=== PATIENT | male | born 1950 | race Caucasian/White ===

== ENCOUNTER 2017-07-30 15:51 | Emergency (ER) | payer MEDICARE ==
[2017-07-30 16:32] LABS: BASOPHIL 0.5 % (0-2); EOSINOPHIL 2.7 % (0-7); HCT 34.1 % (42.0-52.0); HGB 11.6 g/dl (13.2-18.0); LYMPHOCYTE 23.1 % (15-48); MCH 30.6 pg (25.0-31.0); MONOCYTE 10.5 % (0-12); MPV 10.2 fL (6.0-9.5); NEUTROPHIL 63.2 % (41-80); PLT 197 K/uL (150-400); RBC 3.79 M/uL (4.70-6.00); RDW 13.8 % (11.5-14.0); WBC 6.3 K/uL (4.0-10.5)
[2017-07-30 17:00] LABS: ALBUMIN 3.6 g/dL (3.4-4.8); BILIRUBIN - TOTAL 0.3 mg/dL (0.1-1.0); CREATININE 0.9 mg/dL (0.7-1.2); GLOBULIN (CALCULATION) 3.1 g/dL (2.2-4.2); POTASSIUM 3.7 mmol/L (3.5-5.1); TOTAL PROTEIN 6.7 g/dL (6.4-8.3)
== END 2017-07-30 19:16 | disposition home or self-care (01) ==
LOC: FER 15:51
PROVIDERS: Nurse Practitioner Family
DX: S00.83XA Contusion of other part of head, initial encounter (principal); W19.XXXA Unspecified fall, initial encounter
CPT/HCPCS: 36415; 70450; 71020; 80053; 84484; 85025; 93005; 94640

== ENCOUNTER 2020-12-19 15:54 | Emergency (ER) | payer MEDICARE, OTHER ==
[~2020-12-19 15:54] MED LIST: CYCLOBENZAPRINE10 MG PO; NORCO 10-325 T1 EACH PO; PREDNISONE 20MG20 MG PO
[2020-12-19 16:38] LABS: BASOPHIL 0.2 % (0-2); EOSINOPHIL 0 % (0-7); HCT 44.7 % (42.0-52.0); HGB 14.7 g/dl (13.2-18.0); LYMPHOCYTE 6.2 % (15-48); MCH 30.1 pg (25.0-31.0); MCHC 32.9 g/dL (32.0-36.0); MCV 91.4 fL (78.0-100.0); MONOCYTE 10.1 % (0-12); MPV 10.7 fL (6.0-9.5); NEUTROPHIL 82.6 % (41-80); NRBC 0; PLT 263 K/uL (150-400); RBC 4.89 M/uL (4.70-6.00); RDW 14.6 % (11.5-14.0); WBC 11.4 K/uL (4.0-10.5)
[2020-12-19 16:50] LABS: INR 1.17 (0.9-1.2); PROTHROMBIN TIME 14.1 SECONDS (11.4-13.6); PTT 38.3 SECONDS (22.2-34.7)
[2020-12-19 16:53] LABS: ALBUMIN 3.3 g/dL (3.4-5.0); BILIRUBIN - TOTAL 0.5 mg/dL (0.2-1.0); BUN/CREAT RATIO (CALC) 52.5 RATIO; CREATININE 0.99 mg/dL (0.67-1.17); GLOBULIN (CALCULATION) 4.5 g/dL; POTASSIUM 3.7 mmol/L (3.5-5.1); TOTAL PROTEIN 7.8 g/dL (6.4-8.2)
[2020-12-19 16:58] LABS: LACTIC ACID 2.5 mmol/L (0.4-1.9)
== END 2020-12-19 17:35 | disposition other institution (70) ==
LOC: FER 15:54
PROVIDERS: Emergency Medicine
DX: I21.09 ST elevation (STEMI) myocardial infarction involving other coronary artery of anterior wall (principal); I10 Essential (primary) hypertension; J44.9 Chronic obstructive pulmonary disease, unspecified; L89.152 Pressure ulcer of sacral region, stage 2; L89.892 Pressure ulcer of other site, stage 2; Z86.718 Personal history of other venous thrombosis and embolism; Z86.79 Personal history of other diseases of the circulatory system; Z85.118 Personal history of other malignant neoplasm of bronchus and lung; Z85.830 Personal history of malignant neoplasm of bone; Z99.81 Dependence on supplemental oxygen; Z86.73 Personal history of transient ischemic attack (TIA), and cerebral infarction without residual deficits
CPT/HCPCS: 36415; 70450; 71250; 80053; 83605; 83880; 84145; 84484; 85025; 85610; 85730; 87040; 93005; J1644